=== PATIENT | female | born 1940 | race Caucasian/White ===

== ENCOUNTER 2016-04-26 12:57 | Emergency (ER) | payer OTHER ==
[~2016-04-26] VITALS: Ht 157.5 cm; Wt 36.0 kg
[~2016-04-26 12:57] MED LIST: ATIVAN0.5 MG PO; PREDNISONE20 MG PO; PROVENTIL HFA6.7 GM IH; SYMBICORT60 INHALAT IH; ZITHROMAX Z-PA250 MG PO
[2016-04-26 13:55] LABS: BASOPHIL COUNT 0.1 K/uL (0-0.1); EOSINOPHIL (%) 0.9 % (0-5); EOSINOPHIL COUNT 0.1 K/uL (0-0.3); HEMATOCRIT 44.5 % (36.0-46.0); LYMPHOCYTE COUNT 2.1 K/uL (1.0-2.8); MCH 31.8 PG (29.0-34.0); MCHC 32.8 G/DL (30.0-36.0); MCV 96.9 FL (83-99); MEAN PLAT.VOLUME 9.4 uM^3 (9.5-12.4); MONOCYTE COUNT 0.5 K/uL (0-0.8); NEUTROPHIL (%) 57.5 % (45-76); NEUTROPHIL COUNT 3.7 K/uL (1.8-6.4); PLATELET COUNT 258 K/uL (156-360); RBC DIS.WIDTH-CV 14.1 % (11.8-14.6); RBC DIS.WIDTH-SD 48.6 % (39-53); RED BLOOD COUNT 4.59 M/uL (3.80-5.20); WHITE BLOOD COUNT 6.5 K/uL (4.1-10.2)
[2016-04-26 14:05] LABS: CHLORIDE 104 mEq/L (99-109); POTASSIUM 4.5 mEq/L (3.7-5.4); SODIUM 143 mEq/L (136-147)
[2016-04-26 14:07] LABS: GLUCOSE 102 mg/dL (70-99)
[2016-04-26 14:09] LABS: ANION GAP 8 MEQ/L (2-14)
[2016-04-26 14:11] LABS: GFR ESTIMATE (CALCULATED) > 59 mL/min/
[2016-04-26 14:12] LABS: UREA NITROGEN (BUN) 17 mg/dL (9-23)
[2016-04-26 14:21] LABS: TROP-I INTERPRETATION NEGATIVE; TROPONIN-I < 0.01 ng/mL (0.0-0.30)
[2016-04-26 20:58] VITALS: BP 171/82
== END 2016-04-26 21:07 | disposition left against medical advice (07) ==
LOC: EME 12:57
PROVIDERS: Emergency Medicine
DX: J44.9 Chronic obstructive pulmonary disease, unspecified (principal); R91.8 Other nonspecific abnormal finding of lung field; F17.200 Nicotine dependence, unspecified, uncomplicated
CPT/HCPCS: 71020; 71275; 80048; 84484; 85025; 85379; 93005; 94640; 99281; 99285; J7030

== ENCOUNTER 2016-09-13 10:40 | Inpatient (IN) | payer OTHER ==
[~2016-09-13] VITALS: Ht 154.9 cm; Wt 36.5 kg
[2016-09-13 12:34] LABS: EOSINOPHIL (%) 0.6 % (0-5); EOSINOPHIL COUNT 0.1 K/uL (0-0.3); IMMATURE GRANULOCYTE (%) 0.2 % (0.0-0.7); INSTRUMENT ABS NEUTROPHIL CT 5.6 K/uL; LYMPHOCYTE COUNT 2.1 K/uL (1.0-2.8); MCH 31.7 PG (29.0-34.0); MCHC 32.4 G/DL (30.0-36.0); MCV 97.9 FL (83-99); MEAN PLAT.VOLUME 9.5 uM^3 (9.5-12.4); MONOCYTE (%) 10.1 % (3-12); MONOCYTE COUNT 0.9 K/uL (0-0.8); NEUTROPHIL (%) 64.3 % (45-76); NEUTROPHIL COUNT 5.6 K/uL (1.8-6.4); PLATELET COUNT 256 K/uL (156-360); RBC DIS.WIDTH-CV 12.8 % (11.8-14.6); RBC DIS.WIDTH-SD 45.8 % (39-53); RED BLOOD COUNT 3.88 M/uL (3.80-5.20); WHITE BLOOD COUNT 8.7 K/uL (4.1-10.2)
[2016-09-13 12:58] LABS: CHLORIDE 101 mEq/L (99-109); POTASSIUM 4.2 mEq/L (3.7-5.4); SODIUM 142 mEq/L (136-147)
[2016-09-13 13:00] LABS: GLUCOSE 102 mg/dL (70-99)
[2016-09-13 13:01] LABS: ANION GAP 11 MEQ/L (2-14)
[2016-09-13 13:04] LABS: GFR ESTIMATE (CALCULATED) > 59 mL/min/
[2016-09-13 13:05] LABS: UREA NITROGEN (BUN) 12 mg/dL (9-23)
[2016-09-13 13:29] LABS: TROP-I INTERPRETATION NEGATIVE; TROPONIN-I 0.02 ng/mL (0.0-0.30)
[2016-09-13] MEDS ORDERED: DUONEB 2.5-0.5 M3 ML AEROSOL (15:41)
[2016-09-13 17:07] VITALS: BP 176/77
[2016-09-13 23:30] VITALS: BP 134/63
[2016-09-14 03:18] VITALS: BP 126/59
[2016-09-14 16:47] VITALS: BP 126/67
[2016-09-14 19:55] VITALS: BP 144/65
[2016-09-14 23:45] VITALS: BP 118/56
[2016-09-15 03:48] VITALS: BP 150/76
[2016-09-15 05:56] LABS: EOSINOPHIL (%) 0 % (0-5); HEMATOCRIT 35.4 % (36.0-46.0); IMMATURE GRANULOCYTE (%) 0.6 % (0.0-0.7); IMMATURE GRANULOCYTE COUNT 0.1 K/uL; INSTRUMENT ABS NEUTROPHIL CT 10.9 K/uL; LYMPHOCYTE COUNT 0.6 K/uL (1.0-2.8); MCH 33.2 PG (29.0-34.0); MCHC 33.9 G/DL (30.0-36.0); MCV 98.1 FL (83-99); MEAN PLAT.VOLUME 9.8 uM^3 (9.5-12.4); MONOCYTE (%) 3.8 % (3-12); MONOCYTE COUNT 0.5 K/uL (0-0.8); NEUTROPHIL (%) 90.5 % (45-76); NEUTROPHIL COUNT 10.9 K/uL (1.8-6.4); PLATELET COUNT 329 K/uL (156-360); RBC DIS.WIDTH-CV 13.2 % (11.8-14.6); RBC DIS.WIDTH-SD 47.8 % (39-53); RED BLOOD COUNT 3.61 M/uL (3.80-5.20); WHITE BLOOD COUNT 12.1 K/uL (4.1-10.2)
[2016-09-15 06:20] LABS: ANION GAP 7 MEQ/L (2-14); CHLORIDE 104 MEQ/L (99-109); GFR ESTIMATE (CALCULATED) > 59 mL/min/; GLUCOSE 133 mg/dL (70-99); POTASSIUM 4.6 MEQ/L (3.7-5.4); SAMPLE HEMOLYSIS CHECK 0; SAMPLE ICTERIC CHECK 0; SAMPLE LIPEMIA CHECK 0; SODIUM 145 MEQ/L (136-147)
[2016-09-15 06:26] LABS: UREA NITROGEN (BUN) 33 mg/dL (9-23)
[2016-09-15 08:04] VITALS: BP 146/65
[2016-09-15 11:58] VITALS: BP 131/58
[2016-09-15 15:55] VITALS: BP 147/63
[2016-09-15 20:45] VITALS: BP 139/62
[2016-09-16] VITALS: BP 123/58
[2016-09-16 06:45] VITALS: BP 146/66
[2016-09-16 11:16] VITALS: BP 108/58
[2016-09-16 16:00] VITALS: BP 146/62
[2016-09-16 19:40] VITALS: BP 163/69
[2016-09-17 00:08] VITALS: BP 167/75
[2016-09-17 07:59] VITALS: BP 158/95
[2016-09-17 12:04] VITALS: BP 135/64
[2016-09-17 18:39] VITALS: BP 134/61
[2016-09-18] VITALS: BP 128/66
[2016-09-18 04:00] VITALS: BP 134/59
[2016-09-18 07:00] VITALS: BP 140/65
[2016-09-18 11:11] VITALS: BP 135/78
[2016-09-18 15:20] VITALS: BP 138/71
[2016-09-18 20:00] VITALS: BP 131/69
[2016-09-19 06:38] LABS: EOSINOPHIL (%) 0 % (0-5); HEMATOCRIT 36.1 % (36.0-46.0); IMMATURE GRANULOCYTE (%) 1.2 % (0.0-0.7); IMMATURE GRANULOCYTE COUNT 0.1 K/uL; INSTRUMENT ABS NEUTROPHIL CT 8.5 K/uL; LYMPHOCYTE COUNT 0.5 K/uL (1.0-2.8); MCH 31.4 PG (29.0-34.0); MCHC 32.4 G/DL (30.0-36.0); MCV 96.8 FL (83-99); MEAN PLAT.VOLUME 9.6 uM^3 (9.5-12.4); MONOCYTE COUNT 0.4 K/uL (0-0.8); NEUTROPHIL (%) 89.7 % (45-76); NEUTROPHIL COUNT 8.5 K/uL (1.8-6.4); PLATELET COUNT 330 K/uL (156-360); RBC DIS.WIDTH-CV 13.6 % (11.8-14.6); RBC DIS.WIDTH-SD 48.8 % (39-53); RED BLOOD COUNT 3.73 M/uL (3.80-5.20); WHITE BLOOD COUNT 9.5 K/uL (4.1-10.2)
[2016-09-19 07:33] LABS: ANION GAP 9 MEQ/L (2-14); CHLORIDE 98 MEQ/L (99-109); GFR ESTIMATE (CALCULATED) > 59 mL/min/; GLUCOSE 144 mg/dL (70-99); POTASSIUM 5.3 MEQ/L (3.7-5.4); SAMPLE HEMOLYSIS CHECK 0; SAMPLE ICTERIC CHECK 0; SAMPLE LIPEMIA CHECK 0; SODIUM 141 MEQ/L (136-147); UREA NITROGEN (BUN) 35 mg/dL (9-23)
[2016-09-19 08:47] VITALS: BP 142/65
[2016-09-19 16:16] VITALS: BP 120/58
[2016-09-19] MEDS ORDERED: PREDNISONE10 MG PO (19:23)
[2016-09-19] MEDS ORDERED: NICOTINE PATCH1 EAC2 TD (19:23)
== END 2016-09-19 20:34 | disposition home or self-care (01) | DRG 190 ==
LOC: EME → EDBD 10:40 → EME 10:40 → EDOF 14:40 → 5EAST 14:40
PROVIDERS: Emergency Medicine; Internal Medicine
DX: J44.1 Chronic obstructive pulmonary disease with (acute) exacerbation (principal); J96.21 Acute and chronic respiratory failure with hypoxia; J20.9 Acute bronchitis, unspecified; J44.0 Chronic obstructive pulmonary disease with (acute) lower respiratory infection; I10 Essential (primary) hypertension; K21.9 Gastro-esophageal reflux disease without esophagitis; K44.9 Diaphragmatic hernia without obstruction or gangrene; E78.5 Hyperlipidemia, unspecified; F41.9 Anxiety disorder, unspecified; F32.9 Major depressive disorder, single episode, unspecified; E53.8 Deficiency of other specified B group vitamins; E55.9 Vitamin D deficiency, unspecified; M19.90 Unspecified osteoarthritis, unspecified site; Z66 Do not resuscitate; F17.210 Nicotine dependence, cigarettes, uncomplicated; Z99.81 Dependence on supplemental oxygen
CPT/HCPCS: 71010; 71020; 80048; 82803; 83880; 84484; 85025; 93005; 94640; 94640 76; 94644; 94667; 94668; 94760; 94799; 99202; 99281; 99285; J0456; J0696; J2930; J7050; J7644